=== PATIENT | male | born 1965 | race Two or more races ===

== ENCOUNTER 2024-05-03 08:15 | Outpatient (CLI) | payer MEDICAID ==
[~2024-05-03] VITALS: Ht 172.7 cm; Wt 77.1 kg
[2024-05-03] MEDS: albuterol 2.5 MG/3 ML nebule NEB ONE (09:05)
[2024-05-03 09:06] VITALS: PULSE 72; RESP 18; O2SAT 98
[2024-05-03 09:18] VITALS: PULSE 73; RESP 16
== END 2024-05-03 23:59 | disposition home or self-care (01) ==
LOC: RT 08:15
PROVIDERS: ATTEND Physician Assistant
DX: R06.02 Shortness of breath (principal)
CPT/HCPCS: 94060; 94760; J7030